=== PATIENT | female | born 1985 | race Caucasian/White ===

== ENCOUNTER 2016-12-13 15:25 | Emergency (ER) | payer OTHER ==
--- NOTE | ~2016-12-13 | CR142 ---
[facility] A Service of [facility] RADIOLOGY TEXT RESULTS PATIENT: CHELLE VALLE LOCATION: SED : 87 UNIT #: [id number] AGE: [address]: DIXON HAQUE SEX: F ORDER DR: [id number] [place] [id number] E MR#: [id number] Acc #: [id number] NAME: CHELLE VALLE. : 1985 SEX: F STUDY DATE/TIME: 12/13/2016 16:13 UNIT: SED ROOM: STUDY DESCRIPTION: CR Hand Min 3 Views Rt Attending Physician: Dixon Haque Aprn Ordering Physician: Dixon Haque Aprn Primary Care Physician: Nallely Oreilly M.D. MEDICAL IMAGING REPORT This report is preliminary unless electronic signature is present. EXAM Three views right hand INDICATIONS Right hand pain that started 10 days ago, after the patient fell off a step stool. She reports pain in the right fifth metacarpal area. FINDINGS This patient does have a fracture involving the junction of the metacarpal head and shaft of the little finger. There is associated palmar angulation of the distal fragment. There is also a horizontally oriented lucency seen traversing the proximal aspect of the distal phalanx of the little finger and additional nondisplaced fracture is not excluded. Correlation with point tenderness in this area is suggested. No other fractures are seen and there is really no significant degenerative change. IMPRESSION Fracture involving the junction between the head and shaft of the little finger metacarpal with associated palmar angulation of the distal fragment. In addition, there is a lucency seen traversing the proximal aspect of the distal phalanx of the little finger and additional fracture is not excluded. Please correlate with point tenderness. Dictated by... Winsome Anthony M.D. THIS IS AN ELECTRONICALLY VERIFIED REPORT Winsome Anthony M.D. at 12/14/2016 12:52 PM AFF/psc TD: 12/14/2016 02:37 [facility] A Service of [facility] RADIOLOGY TEXT RESULTS PATIENT: CEHLLE VALLE LOCATION: SED : [birth year] UNIT #: [id number] AGE: [address]: DIXON HAQUE SEX: F ORDER DR: KLEBY #: [id number] MEDICAL IMAGING REPORT Page 1 of 1
[~2016-12-13 15:25] MED LIST: ALBUTEROL17 GM INH; AUGMENTIN875 MG PO; BACTRIM DS TABL1 TA1 PO; COLACE PO; HYDROCODON-ACE1 EAC9 PO; LACTULOSE10 G/15 M1 PO; NO MEDICATIONS; ROBITUSSIN A-C10 ML PO; SYMBICORT INH; ZOFRANODT PO
== END 2016-12-13 17:34 | disposition home or self-care (01) ==
LOC: SED 15:25
DX: S62.326A Displaced fracture of shaft of fifth metacarpal bone, right hand, initial encounter for closed fracture (principal); W11.XXXA Fall on and from ladder, initial encounter; F17.210 Nicotine dependence, cigarettes, uncomplicated
CPT/HCPCS: 29125; 73130; 99283